=== PATIENT | male | born 1975 | race Two or more races ===

== ENCOUNTER 2017-02-18 11:36 | Emergency (ER) | payer OTHER ==
[~2017-02-18] VITALS: Ht 170.2 cm; Wt 68.0 kg
[2017-02-18 11:55] VITALS: BP 123/84
[2017-02-18] MEDS ORDERED: Bacitracin Oint UD TOPIC ONE ×2 (12:17→12:30)
[2017-02-18] MEDS ORDERED: TdaP Vaccine 0.5ml Syr IM ONE ×2 (12:18→12:30)
--- NOTE | 2017-02-18 12:25 | Emergency Room Report ---
History of Present Illness General Chief Complaint: Multiple Trauma/Fall Source: Patient Present Illness HPI 42-year-old male presents emergency department complaining of tenderness to the right parietal area of the scalp in addition to right knee and left hand. Patient reports abrasion with mild bleeding to the right knee and the left hand. Patient status post mechanical slip and fall while climbing up into a truck. Patient estimates had a fall was less than 4 feet. Patient states he hit his right knee first and then the right side of his head. Patient denies loss of consciousness he can recall the entire event he denies nausea or vomiting denies dizziness or in balance. Patient does not know when his last tetanus vaccination was. Patient denies pain with movement of the affected areas. Patient rates his pain as 4/10 in severity. Denies swelling, denies pain with walking. He denies neck pain or back pain. Patient states no aggravating or relieving factors other than exacerbation up on light palpation to the abrasions . Denies taking blood thinning medications, and has not taken any medications for his symptoms. pt. denies Pmhx. Denies numbness tingling or loss of sensation or gross motor movements of the extremities, incontinence of bowel or bladder. Denies CP, Palpitations, LOC, AMS, dizziness, Changes in Vision, Sensation, paresthesias, or a sudden severe headache. Allergies: Coded Allergies: No Known Allergies (Unverified , 02/18/17) Patient History Past Medical History: see triage record Past Surgical History: none Pertinent Family History: none Reviewed Nursing Documentation: PMH: Agreed, PSxH: Agreed Nursing Documentation-PM Past Medical History: No Stated History Review of Systems All Other Systems: negative except mentioned in HPI Physical Exam Vital Signs Date Time Temp Pulse Resp B/P Pulse Ox O2 Delivery O2 Flow Rate FiO2 02/18/17 11:55 98.2 96 16 123/84 97 Room Air Sp02 EP Interpretation: reviewed, normal General Appearance: no apparent distress, alert, GCS 15, non-toxic Head: normocephalic, other - soft tissue swelling of the right parietal area, no abrasions of the head. Eyes: bilateral eye EOMI, bilateral eye PERRL, bilateral eye normal inspection ENT: hearing grossly normal, normal pharynx, no angioedema, normal voice, TMs + canals normal, uvula midline, moist mucus membranes, other - no hemotympanum, wilson sign, or evidence of CSF leakage. No septal hematoma noted. Neck: full range of motion, no bony tend, supple/symm/no masses Respiratory: chest non-tender, lungs clear, normal breath sounds, speaking full sentences Cardiovascular #1: regular rate, rhythm, no edema, normal capillary refill Cardiovascular #2: 2+ radial (R), 2+ radial (L) Rectal: deferred Musculoskeletal: back normal, gait/station normal, normal range of motion, tender - superficial ttp to the soft tissue where abrasions are located, no appreciable bony ttp to the right knee of the dorsum of the left hand. soft tissue swelling of the right parietal area, no abrasions of the head. Neurologic: alert, oriented x3, responsive, motor strength/tone normal, sensory intact, speech normal Psychiatric: judgement/insight normal, memory normal, mood/affect normal Skin: normal color, no rash, warm/dry, well hydrated, abrasions - abrasion to the anterior right knee, and the dorsum of the left hand, no surrounding erythema, no hematomas, no evidence of fb's noted. Lymphatic: no adenopathy Medical Decision Making PA Attestation Dr. Mobley is my supervising Physician whom patient management has been discussed with. Diagnostic Impression: Primary Impression: Head contusion Qualified Codes: S00.83XA - Contusion of other part of head, initial encounter Additional Impressions: Abrasion Contusion of hand Qualified Codes: S60.222A - Contusion of left hand, initial encounter ER Course 42-year-old male presents emergency department complaining of tenderness to the right parietal area of the scalp in addition to right knee and left hand. Patient reports abrasion with mild bleeding to the right knee and the left hand. Patient status post mechanical slip and fall while climbing up into a truck. Patient estimates had a fall was less than 4 feet. Patient states he hit his right knee first and then the right side of his head. Patient denies loss of consciousness he can recall the entire event he denies nausea or vomiting denies dizziness or in balance. Patient does not know when his last tetanus vaccination was. Patient denies pain with movement of the affected areas. Patient rates his pain as 4/10 in severity. Denies swelling, denies pain with walking. He denies neck pain or back pain. Patient states no aggravating or relieving factors other than exacerbation up on light palpation to the abrasions . Denies taking blood thinning medications, and has not taken any medications for his symptoms. pt. denies Pmhx. Ddx considered but are not limited to Fracture, dislocation, contusion, Sprain/ Strain/Spasm, concussion, abrasions Vital signs: are WNL, pt. is afebrile H&PE are most consistent with contusion to the right side of the head, and abrasions of multiple sites, no bony ttp or neurological deficits. ORDERS: - X-rays not warranted at this time pt. does not have bony ttp, he has superficial soft tissue ttp, FROM of affected extremities. - CT imaging is not warranted at this time pt. does not have focal neurological deficits, negative LOC, no N/V--- d/w pt. that if these symptoms do develop that he should return promptly to the ED. ED INTERVENTIONS: -Tetanus vaccination is administered. - Tylenol PO -Abrasions are cleaned, bacitracin is applied, and sterile dressing is applied by black top paver operator. DISCHARGE: At this time pt. is stable for d/c to home. Will provide printed patient care instructions, and any necessary prescriptions. Care plan and follow up instructions have been discussed with the patient prior to discharge. Last Vital Signs Date Time Temp Pulse Resp B/P Pulse Ox O2 Delivery O2 Flow Rate FiO2 02/18/17 11:55 98.2 96 16 123/84 97 Room Air Disposition: HOME, SELF-CARE Condition: Stable Scripts Bacitracin/Polymyxin B Sulfate (BACITRACIN-POLYMYXIN OINTMENT) 28.35 Gm Oint...g. 1 APPLIC TP BID, #28 GM Prov: [email or web address] 02/18/17 Acetaminophen* (TYLENOL EXTRA STRENGTH*) 500 Mg Tablet 500 MG ORAL Q6H, #30 TAB 0 Refills Prov: [email or web address] 02/18/17 Cephalexin* (KEFLEX*) 500 Mg Capsule 500 MG ORAL EVERY 12 HOURS for 7 Days, #14 CAP 0 Refills Prov: [email or web address] 02/18/17 Departure Forms: Return to Work Return to Work Date: February 20, 2017 Work Restrictions: None Return to Full Activity: February 20, 2017 Patient Instructions: Abrasion, Contusion, Head Injury, Adult, [id number] Additional Instructions: Take medications as directed. Follow up with PCP in 3-5 days Return sooner to ED if new symptoms occur, or current symptoms become worse. - Please note that this Emergency Department Report was dictated using [employer] general duty technology software, occasionally this can lead to erroneous entry secondary to interpretation by the dictation equipment. Florencia Menendez Feb 18, 2017 12:25
[2017-02-18] MEDS ORDERED: CEPHALEXIN500 MG ORAL (12:26)
[2017-02-18] MEDS ORDERED: BACITRACIN-P28.35 GM TP (12:26)
[2017-02-18] MEDS ORDERED: TYLENOL EXTRA500 MG ORAL (12:26)
== END 2017-02-18 12:34 | disposition home or self-care (01) ==
LOC: EMR 12:15
DX: S00.03XA Contusion of scalp, initial encounter (principal); S80.211A Abrasion, right knee, initial encounter; S60.512A Abrasion of left hand, initial encounter; S60.222A Contusion of left hand, initial encounter; W17.89XA Other fall from one level to another, initial encounter; Y92.511 Restaurant or cafe as the place of occurrence of the external cause; Y99.0 Civilian activity done for income or pay; Z23 Encounter for immunization
CPT/HCPCS: 90471; 90715; 96372; 99284